=== PATIENT | male | born 1950 | race Caucasian/White ===

== ENCOUNTER 2024-10-28 10:59 | Emergency (ER) | payer SELFPAY ==
[~2024-10-28] VITALS: Ht 167.6 cm; Wt 59.0 kg
== END 2024-10-28 19:15 | disposition home or self-care (01) ==
LOC: ER 10:59
DX: S70.01XA Contusion of right hip, initial encounter (principal); W18.2XXA Fall in (into) shower or empty bathtub, initial encounter
CPT/HCPCS: 73502; 99283-25

== ENCOUNTER 2024-12-26 19:59 | Emergency (ER) | payer OTHER ==
[~2024-12-26] VITALS: Ht 165.1 cm; Wt 86.2 kg
[2024-12-26 20:48] LABS: BASOPHILS ABSOLUTE AUTO 0.04 K/mm3 (0.00-0.23); BASOPHILS PERCENT AUTO 1 % (0-2); EOSINOPHILS ABSOLUTE AUTO 0.13 K/mm3 (0.00-0.68); EOSINOPHILS PERCENT AUTO 2 % (0-6); Hematocrit 33.6 % (37.0-53.0); IMMATURE GRAN ABSOLUTE AUTO 0.01 K/mm3 (0.00-0.10); IMMATURE GRAN PERCENT AUTO 0 % (0-1); LYMPHOCYTES ABSOLUTE AUTO 0.47 K/mm3 (0.84-5.20); LYMPHOCYTES PERCENT AUTO 8 % (21-46); MONOCYTES ABSOLUTE AUTO 0.56 K/mm3 (0.16-1.47); MONOCYTES PERCENT AUTO 9 % (4-13); Mean Corpuscular HGB 30.6 pg (26.0-34.0); Mean Corpuscular HGB Conc 32.7 g/dL (31.5-36.5); Mean Corpuscular Volume 94 fL (80-100); Mean Platelet Volume 10.4 fL (9.1-12.4); NEUTROPHILS ABSOLUTE AUTO 5.04 K/mm3 (1.96-9.15); NEUTROPHILS PERCENT AUTO 81 % (41-73); Platelet Count 142 K/mm3 (150-400); RDW Coefficient Variation 14.9 % (11.7-14.2); RDW Standard Deviation 51.8 fL (35.1-46.3); Red Blood Cell Count 3.59 M/mm3 (4.30-5.90); White Blood Cell Count 6.25 K/mm3 (4.00-11.30)
[2024-12-26 21:06] LABS: Albumin, Blood 2.4 g/dL (3.4-5.0); Albumin/Globulin Ratio 0.6 (0.8-1.8); Bilirubin, Total 0.4 mg/dL (0.1-1.0); Bun/Creatinine Ratio 19.1 (12.0-20.0); Calcium, Blood 8.9 mg/dL (8.5-10.1); Creatinine, Blood 0.94 mg/dL (0.60-1.20); Total Protein, Blood 6.4 g/dL (6.4-8.2)
[2024-12-26 21:08] LABS: CORONAVIRUS COVID-19 AG Negative (NEGATIVE); INFLUENZA A AG Negative (NEGATIVE); INFLUENZA B AG Negative (NEGATIVE)
[2024-12-26 21:41] LABS: Source, Urine Clean Catch
[2024-12-26 21:44] LABS: Appearance, Urine Clear (Clear); Bilirubin, Urine Neg (Neg); Blood, Urine Neg (Neg); Color, Urine Yellow (P-Yellow); Glucose Qualitative, Urine Neg (Neg); Ketones, Urine 1+ (Neg); Leukocyte Esterase, Urine Neg (Neg); Nitrite, Urine Neg (Neg); Protein, Urine 1+ (Neg); Urobilinogen, Urine 1+ (Normal)
[2024-12-26] MEDS ORDERED: Azithromycin 250 MG Tab PO ONE (22:35)
[2024-12-26] MEDS ORDERED: Amoxicillin/Clavulanate K 875 MG Tab PO ONE (22:35)
[2024-12-26] MEDS ORDERED: AMOCLA875 PO (22:37)
[2024-12-26] MEDS ORDERED: AZIT250 PO (22:37)
== END 2024-12-26 23:03 | disposition home or self-care (01) ==
LOC: ER 19:59
PROVIDERS: Emergency Medicine
DX: J18.9 Pneumonia, unspecified organism (principal)
CPT/HCPCS: 71046; 80053; 85025; 87428-QW; 93005; 93010; 99285-25; A9270

== ENCOUNTER 2024-12-27 21:25 | Inpatient (IN) | payer OTHER ==
[~2024-12-27] VITALS: Ht 165.1 cm; Wt 76.4 kg
[~2024-12-27 21:25] MED LIST: AMOCLA875 PO; AZIT250 PO
[2024-12-27 21:37] LABS: BASOPHILS ABSOLUTE AUTO 0.03 K/mm3 (0.00-0.23); BASOPHILS PERCENT AUTO 1 % (0-2); EOSINOPHILS ABSOLUTE AUTO 0.05 K/mm3 (0.00-0.68); EOSINOPHILS PERCENT AUTO 1 % (0-6); Hematocrit 36.5 % (37.0-53.0); Hemoglobin 11.6 g/dL (13.5-17.5); IMMATURE GRAN ABSOLUTE AUTO 0.03 K/mm3 (0.00-0.10); IMMATURE GRAN PERCENT AUTO 1 % (0-1); LYMPHOCYTES ABSOLUTE AUTO 0.64 K/mm3 (0.84-5.20); LYMPHOCYTES PERCENT AUTO 11 % (21-46); MONOCYTES ABSOLUTE AUTO 0.66 K/mm3 (0.16-1.47); MONOCYTES PERCENT AUTO 11 % (4-13); Mean Corpuscular HGB 29.9 pg (26.0-34.0); Mean Corpuscular HGB Conc 31.8 g/dL (31.5-36.5); Mean Corpuscular Volume 94 fL (80-100); Mean Platelet Volume 10.1 fL (9.1-12.4); NEUTROPHILS ABSOLUTE AUTO 4.56 K/mm3 (1.96-9.15); NEUTROPHILS PERCENT AUTO 76 % (41-73); Platelet Count 131 K/mm3 (150-400); RDW Coefficient Variation 14.6 % (11.7-14.2); RDW Standard Deviation 50.9 fL (35.1-46.3); Red Blood Cell Count 3.88 M/mm3 (4.30-5.90); White Blood Cell Count 5.97 K/mm3 (4.00-11.30)
[2024-12-27 21:45] LABS: Base Excess Venous 7.8 mmol/L; Bicarbonate Venous 29.5 mmol/L (24.0-30.0); PCO2 Venous 58.9 mmHg (38-42); pH Blood Venous 7.36 (7.34-7.37)
[2024-12-27 22:00] LABS: Albumin, Blood 2.6 g/dL (3.4-5.0); Albumin/Globulin Ratio 0.6 (0.8-1.8); Bilirubin, Total 0.5 mg/dL (0.1-1.0); Bun/Creatinine Ratio 16.4 (12.0-20.0); Calcium, Blood 8.7 mg/dL (8.5-10.1); Creatinine, Blood 0.91 mg/dL (0.60-1.20); Globulin, Blood 4.3 g/dL (2.2-4.0); Potassium, Blood 4.1 mmol/L (3.5-5.5); Total Protein, Blood 6.9 g/dL (6.4-8.2)
[2024-12-27] MEDS ORDERED: MethylPREDNISolone Sod Succ 125 MG Vial IV ONE (22:35)
[2024-12-27] MEDS ORDERED: Albuterol 2.5 MG/3 ML VIAL INH SCH (22:40)
[2024-12-27] MEDS ORDERED: CefTRIAXone Sodium 1,000 MG in NS 100 ML IV ONE (23:30)
[2024-12-28] MEDS ORDERED: Ketorolac Tromethamine 15mg Vial IV ONE (00:20)
[2024-12-28] MEDS ORDERED: Ipratropium/Albuterol SulF 2.5-0.5MG/3 ML Amp INH SCH (01:30)
[2024-12-28] MEDS ORDERED: Acetaminophen 325 MG TABLET PO PRN (01:30)
[2024-12-28] MEDS ORDERED: FLU VACC TS2024-25(6MOS UP)/PF 45 MCG/0.5 ML SYRINGE IM ONE (01:35)
[2024-12-28] MEDS ORDERED: Azithromycin 500 MG in NS 250 ML IV SCH (01:37)
[2024-12-28 02:15] LABS: Base Excess Venous 0.5 mmol/L; Bicarbonate Venous 23.9 mmol/L (24.0-30.0); PCO2 Venous 59.6 mmHg (38-42)
[2024-12-28 02:17] LABS: pH Blood Venous 7.27 (7.34-7.37)
[2024-12-28] MEDS ORDERED: Albuterol 2.5 MG/3 ML VIAL INH PRN (02:50)
[2024-12-28] MEDS ORDERED: Lactated Ringer's 500 ML IV SCH (04:35)
[2024-12-28 05:55] LABS: BASOPHILS PERCENT AUTO 0 % (0-2); EOSINOPHILS PERCENT AUTO 0 % (0-6); Hematocrit 36.4 % (37.0-53.0); Hemoglobin 11.5 g/dL (13.5-17.5); IMMATURE GRAN ABSOLUTE AUTO 0.02 K/mm3 (0.00-0.10); IMMATURE GRAN PERCENT AUTO 0 % (0-1); LYMPHOCYTES ABSOLUTE AUTO 0.21 K/mm3 (0.84-5.20); LYMPHOCYTES PERCENT AUTO 4 % (21-46); MONOCYTES ABSOLUTE AUTO 0.09 K/mm3 (0.16-1.47); MONOCYTES PERCENT AUTO 2 % (4-13); Mean Corpuscular HGB 30.3 pg (26.0-34.0); Mean Corpuscular HGB Conc 31.6 g/dL (31.5-36.5); Mean Corpuscular Volume 96 fL (80-100); Mean Platelet Volume 10.4 fL (9.1-12.4); NEUTROPHILS ABSOLUTE AUTO 4.61 K/mm3 (1.96-9.15); NEUTROPHILS PERCENT AUTO 94 % (41-73); Platelet Count 139 K/mm3 (150-400); RDW Coefficient Variation 14.7 % (11.7-14.2); RDW Standard Deviation 51.8 fL (35.1-46.3); White Blood Cell Count 4.93 K/mm3 (4.00-11.30)
--- NOTE | 2024-12-28 05:59 | NUR ---
ADMIT NOTE PT ARRIVED ON BED FROM ED AT 0525 ON BIPAP. PT DROWSY BUT ORIENTED, NOT WANTING TO ANSWER MANY QUESTIONS THOUGH. A FLUTTER RHYTHM IN 80'S WITH STABLE BP. 500ML BOLUS OF LR WAS FINISHING UP PT ARRIVED. BIPAP SETTINGS 012/6 WITH 3L BLEED IN, PRODUCING SATURATIONS OF 100%. NO CHEST PAIN/PRESSURE. SOME SOB SINCE ARRIVAL TO ED BUT STABLE/DECREASED SINCE THEN. PT INCONTINENT OF URINE UPON ARRIVAL. CLEANED AND CHANGED. PHOTOS TAKEN OF NUREROUS RASHES, MOST OF WHICH LOCATED AROUND GROIN/SCROTUM. PT SAYS HE HAS PSORIASIS AND HE CAN'T STOP ITCHING THE RASHES. HE CAUSES HIMSELF TO BLEED AT TIMES. REPORT GIVEN TO ONCOMING NURSE.
[2024-12-28 06:19] LABS: Albumin, Blood 2.4 g/dL (3.4-5.0); Albumin/Globulin Ratio 0.5 (0.8-1.8); Bilirubin, Total 0.3 mg/dL (0.1-1.0); Bun/Creatinine Ratio 20.7 (12.0-20.0); Calcium, Blood 8.6 mg/dL (8.5-10.1); Creatinine, Blood 0.97 mg/dL (0.60-1.20); Globulin, Blood 4.6 g/dL (2.2-4.0); Magnesium, Blood 2.2 mg/dL (1.6-2.4)
[2024-12-28 07:27] VITALS: BP 97/63
[2024-12-28] MEDS ORDERED: Lactobacil 2-S.Thermo-Bifido 1 1 Cap PO SCH (09:00)
[2024-12-28] MEDS ORDERED: Docusate Sodium 100 MG Cap PO SCH (09:00)
[2024-12-28] MEDS ORDERED: GuaiFENesin 600 MG TabCR PO SCH (09:00)
[2024-12-28] MEDS ORDERED: MethylPREDNISolone Sod Succ 125 MG Vial IV SCH (09:00)
[2024-12-28] MEDS ORDERED: Enoxaparin 40 MG/0.4 ML SYR SC SCH (09:00)
--- NOTE | 2024-12-28 10:17 | NUR ---
[address] [employer] NOTIFIED THIS RN THAT PT HAS CONVERTED TO SR.
[2024-12-28 12:29] VITALS: BP 107/57
[2024-12-28] MEDS ORDERED: Diazepam 5 MG Tab PO PRN (16:55)
[2024-12-28 17:11] VITALS: BP 145/67
[2024-12-28 17:46] LABS: Bun/Creatinine Ratio 26.7 (12.0-20.0); Calcium, Blood 9.5 mg/dL (8.5-10.1); Creatinine, Blood 1.01 mg/dL (0.60-1.20); Potassium, Blood 4.8 mmol/L (3.5-5.5)
--- NOTE | 2024-12-28 18:52 | NUR ---
SHIFT SUMMARY PATIENT IS AOX4 ABLE TO MAKE NEEDS KNOWN. HE IS EASILY AGITATED. STRT OF SHIFT HE WAS CONTROLLED AFIB THEN CONVERTED TO SINUS AT 0800. HIS LUNG SOUNDS ARE DIM/WHEEZE/CRACKLES AND HIS 02 SATS ARE >90% ON 2L WHICH IS HIS HOME O2 REQUIEMENT. HE WAS ABLE TO GET OUT OF BED AND EAT IN THE CHAIR AND WAK TO THE BATHROOM WITH A WALKER AND 1 ASSIST. TOWARD THE END OF SHIFT HE WAS COMPLAINING OF CRAMPING IN HIS HAND SO DR. MCKNIGHT ORDERED VALIUM.
[2024-12-28] MEDS ORDERED: NS 250 ML IV PRN (19:45)
[2024-12-28] MEDS ORDERED: Melatonin 5 MG Tablet PO ONE (20:06)
[2024-12-28 20:11] VITALS: BP 125/64
[2024-12-28] MEDS ORDERED: Insulin Human Lispro 100 Units/ML 3ML Syringe SC SCH (21:00)
[2024-12-28] MEDS ORDERED: CefTRIAXone Sodium 1,000 MG in NS 100 ML IV SCH (21:00)
[2024-12-29 04:18] VITALS: BP 124/95
[2024-12-29 04:36] LABS: BASOPHILS ABSOLUTE AUTO 0.01 K/mm3 (0.00-0.23); BASOPHILS PERCENT AUTO 0 % (0-2); EOSINOPHILS PERCENT AUTO 0 % (0-6); Hematocrit 34.8 % (37.0-53.0); Hemoglobin 10.8 g/dL (13.5-17.5); IMMATURE GRAN ABSOLUTE AUTO 0.03 K/mm3 (0.00-0.10); IMMATURE GRAN PERCENT AUTO 0 % (0-1); LYMPHOCYTES ABSOLUTE AUTO 0.51 K/mm3 (0.84-5.20); LYMPHOCYTES PERCENT AUTO 4 % (21-46); MONOCYTES PERCENT AUTO 4 % (4-13); Mean Corpuscular HGB 29.8 pg (26.0-34.0); Mean Corpuscular Volume 96 fL (80-100); Mean Platelet Volume 10.5 fL (9.1-12.4); NEUTROPHILS ABSOLUTE AUTO 10.52 K/mm3 (1.96-9.15); NEUTROPHILS PERCENT AUTO 92 % (41-73); Platelet Count 149 K/mm3 (150-400); RDW Coefficient Variation 14.7 % (11.7-14.2); Red Blood Cell Count 3.62 M/mm3 (4.30-5.90); White Blood Cell Count 11.47 K/mm3 (4.00-11.30)
[2024-12-29 04:57] LABS: Calcium, Blood 9.2 mg/dL (8.5-10.1); Creatinine, Blood 0.96 mg/dL (0.60-1.20); Potassium, Blood 4.2 mmol/L (3.5-5.5)
--- NOTE | 2024-12-29 06:38 | NUR ---
SHIFT SUMMARY NEURO: A/OX4. BASELINE NEUROPATHY AND CRAMPING PER PT. CARDIAC: SINUS TO AFIB. LUNGS: COARSE UPPER LOBES AND DIMINISHED BASES. ON 1 L NC.
[2024-12-29 07:29] VITALS: BP 125/64
[2024-12-29] MEDS ORDERED: Furosemide 10 MG / ML 2ML Vial IV SCH (09:00)
[2024-12-29 12:14] VITALS: BP 127/70
[2024-12-29 16:34] VITALS: BP 132/67
--- NOTE | 2024-12-29 16:46 | NUR ---
UPDATE PT REMAINS ALERT AND ORIENTED. BP STABLE. HR REMAINS NSR. O2 SATS REMAIN ABOVE 90% ON 3L NC. PT COMPLAINED OF HEADACHE THAT WAS RESOLVED WITH MEDICATION ADMINISTRATION. PT UP TO BATHROOM NEEDED WITH SBA AND FWW. REPORT GIVEN TO GABRIELA PEOPLES TO ASSUME CARE ON MEDICAL FLOOR. PT TO BE TAKEN TO NEW ROOM VIA
[2024-12-29 17:32] VITALS: BP 138/59
--- NOTE | 2024-12-29 17:50 | NUR ---
TRANSFER PT TRANSFERED TO ROOM 363 FO PCU. PT ORIENTED TO ROOM, CALL LIGHT IN REACH. PROVIDED WITH WATER. CONT PULSE OX IN PLACE. PT INCREASED FROM 2L TO 3.5L DUE TO SATS AT 85%. CURRENTLY SATING AT 91% NOW. PT PLEASANT & COOPERATIVE WITH CARE. 2 RN SKIN ASSESSMENT DONE WITH JOVANNI MCKEON RN. NO NEW SKIN PROBLEMS NOTED EXCEPT FOR HIS ONGOING PSORIASIS. DENIES OTHER NEEDS AT THIS TIME. CALL LIGHT IN REACH. VS REVIEWED.
[2024-12-29 19:40] VITALS: BP 132/79
[2024-12-30] MEDS ORDERED: Ipratropium/Albuterol SulF 2.5-0.5MG/3 ML Amp INH SCH (02:32)
[2024-12-30 04:30] VITALS: BP 143/66
[2024-12-30 04:44] LABS: BASOPHILS ABSOLUTE AUTO 0.02 K/mm3 (0.00-0.23); BASOPHILS PERCENT AUTO 0 % (0-2); EOSINOPHILS PERCENT AUTO 0 % (0-6); Hematocrit 36.7 % (37.0-53.0); Hemoglobin 11.3 g/dL (13.5-17.5); IMMATURE GRAN PERCENT AUTO 1 % (0-1); LYMPHOCYTES ABSOLUTE AUTO 0.62 K/mm3 (0.84-5.20); LYMPHOCYTES PERCENT AUTO 5 % (21-46); MONOCYTES ABSOLUTE AUTO 0.25 K/mm3 (0.16-1.47); MONOCYTES PERCENT AUTO 2 % (4-13); Mean Corpuscular HGB 29.7 pg (26.0-34.0); Mean Corpuscular HGB Conc 30.8 g/dL (31.5-36.5); Mean Corpuscular Volume 97 fL (80-100); Mean Platelet Volume 10.1 fL (9.1-12.4); NEUTROPHILS ABSOLUTE AUTO 12.74 K/mm3 (1.96-9.15); NEUTROPHILS PERCENT AUTO 93 % (41-73); Platelet Count 171 K/mm3 (150-400); RDW Coefficient Variation 14.8 % (11.7-14.2); RDW Standard Deviation 53.1 fL (35.1-46.3); White Blood Cell Count 13.73 K/mm3 (4.00-11.30)
[2024-12-30 05:10] LABS: Bun/Creatinine Ratio 32.6 (12.0-20.0); Calcium, Blood 9.1 mg/dL (8.5-10.1); Creatinine, Blood 0.86 mg/dL (0.60-1.20); Potassium, Blood 4.2 mmol/L (3.5-5.5)
--- NOTE | 2024-12-30 05:20 | NUR ---
SHIFT SUMMARY PT ALERT ORIENTED ABLE TO VERBALIZE NEEDS. HE STATED THAT HE HAD A HARD TIME GETTING COMFORTABLE MOST OF THE NIGHT. REMAINS ON ROCEPHIN AND ZITHROMAX ORDERED FOR PNEUMONIA. REMAINS WITH A NONPRODUCTIVE COUGH AND CONGESTION. REMAINS ON O2 AT 4 VIA NC. CONTINUES ON A CONTINUOUS PULSE OX. C/O GENERALIZED PAIN MEDICATED WITH TYLENOL AND VAIUM WITH GOOD RELIEF. FS WAS 194 LAST NIGHT. THERES A POSIBILITY HE CAN BE DISCHARGED TODAY. HES RESTING IN BED AT THIS TIME WITH CALL LIGHT IN REACH
[2024-12-30 07:28] VITALS: BP 165/103
[2024-12-30] MEDS ORDERED: PredniSONE 20 MG Tab PO SCH (09:00)
[2024-12-30] MEDS ORDERED: AMOCLA875 PO (11:15)
[2024-12-30] MEDS ORDERED: AZIT250 PO (11:17)
[2024-12-30] MEDS ORDERED: ACET325 PO (11:17)
[2024-12-30] MEDS ORDERED: DOCU100 PO (11:18)
[2024-12-30] MEDS ORDERED: GUAI600T33 PO (11:19)
[2024-12-30] MEDS ORDERED: Prednisone10 MG PO (11:21)
[2024-12-30] MEDS ORDERED: LACT PO (12:51)
[2024-12-30] MEDS ORDERED: FURO20 PO (12:52)
[2024-12-30] MEDS ORDERED: ALBU90OI INH (12:52)
--- NOTE | 2024-12-30 13:30 | NUR ---
DISCHARGE DELAY PT RIDE UNABLE TO DIRECTOR OF ROTC PATIENT TODAY DUE TO FLOODING. PT DC WILL BE DELAYED TILL TOMORROW FOR THIS REASON.
[2024-12-30 16:07] VITALS: BP 146/73
--- NOTE | 2024-12-30 18:02 | NUR ---
SHIFT SUMMARY PT PLANNED FOR DC. DELAYED DUE TO WEATHER CONDITIONS AND TRANSPORTATION. PT READY FOR DC TOMORROW IF HIS RIDE IS ABLE TO MAKE IT. HARD SCRIPT FOR LABS IN THE CHART AND DC PRINTED AND IN PACKED. MED[facility]. PT SHOWERED TODAY. PLEASANT & COOPERATIVE. SATING IN THE 90S ON 3L O2 AT REST, 4L WITH EXERTION. HOME O2 EVAL COMPLETED TODAY. RESULTS RELAYED TO [facility]ALTH OCCUPATIONS INSTRUCTOR [facility]. NO OTHER ACUTE CHANGES IN ASSESSMENT AT THIS TIME. VS REVIEWED. CALL LIGHT IN REACH. PT DENIES OTHER NEEDS AT THIS TIME.
[2024-12-30 19:12] VITALS: BP 138/72
--- NOTE | 2024-12-31 04:02 | NUR ---
SHIFT SUMMARY PT ALERT ORIENTED X 4 ABLE TO VERBALIZE NEEDS USES URINAL AT THE BEDSIDE. HE WILL DISCHARGE TODAY DEPENDING IF HIS NURSING HOME PHYSICIAN CAN COME GET HIM. HE WAS ABLE TO SLEEP MOST OF THE NIGHT, REMAINS ON 3 L OF OXYGEN AT REST AND 4 LITERS FOR EXERTION. EMAINS ON A CONTINUOUS PULSE OX. VSS ON 3L SATTING AT 93%. NO C/O PAIN THIS SHIFT. NO C/O SOB THIS SHIFT. RESTING IN BED AT THIS TIME WITH ALL LIGHT IN REACH
[2024-12-31 04:24] VITALS: BP 139/77
[2024-12-31 06:23] VITALS: BP 150/81
== END 2024-12-31 12:45 | disposition home or self-care (01) | DRG 189 ==
LOC: ER 21:25 → ERHOLD 12-28 01:26 → PCU 12-28 01:26 → MEDS 12-29 17:15
PROVIDERS: Emergency Medicine; Internal Medicine; ADMIT Student in an Organized Health Care Education/Training Program
PROC: 5A09357 Assistance with Respiratory Ventilation, Less than 24 Consecutive Hours, Continuous Positive Airway Pressure (ICD-10-PCS; principal; 2024-12-28)
DX: J96.21 Acute and chronic respiratory failure with hypoxia (principal); J44.1 Chronic obstructive pulmonary disease with (acute) exacerbation; I50.32 Chronic diastolic (congestive) heart failure; J44.0 Chronic obstructive pulmonary disease with (acute) lower respiratory infection; Z66 Do not resuscitate; J96.22 Acute and chronic respiratory failure with hypercapnia; I48.91 Unspecified atrial fibrillation; J20.9 Acute bronchitis, unspecified; Z79.2 Long term (current) use of antibiotics; Z99.81 Dependence on supplemental oxygen; Z87.01 Personal history of pneumonia (recurrent)
CPT/HCPCS: 36415; 71046; 80048; 80053; 82803; 82947; 83735; 83880; 84145; 84484; 85025; 93005; 93010; 93306; 94640; 94644; 94660; 94664; 94761; 94762; 96365; 96375; 99285-25; A9270; J0456; J0696; J1650; J1940; J2919; J7050; J7120; J7512